=== PATIENT | male | born 1945 | race Caucasian/White ===

== ENCOUNTER 2017-02-25 17:10 | Inpatient (IN) | payer MEDICARE ==
[~2017-02-25 17:10] MED LIST: ADULT LOW DOSE81 M1 PO; AMBIEN5 M1 PO; ASPIRIN325 MG PO; ATORVASTATIN CA20 M1 PO; ATROVENT; BYSTOLIC10 M1 PO; BYSTOLIC5 M1 PO; CARDIZEM CD240 M1 PO; CATAPRES-TTS 11 EACH TD; CIPRO500 M2 PO; CLONAZEPAM0.5 M2 PO; CLONIDINE HCL0.1 M2 PO; CLONIDINE HCL0.3 M1 PO; COREG6.25 M1 PO; COREG6.25 MG PO; COZAAR100 M1 PO; DILTIAZEM 24HR120 M4 PO; DULERA 200 MCG/13 G1 INH; ESCITALOPRAM OX10 M1 PO; FISH OIL 1,2001 EAC2 PO; GLUCOSAMINE1000 MG PO; HYDRALAZINE HCL25 M1 PO; HYDRALAZINE HCL50 M1 PO; IMDUR PO; IPRAT-ALBUT 0.5-3 ML INH; ISOSORBIDE MONO60 M3 PO; LASIX40 M1 PO; LOSARTAN-HCTZ1 EAC3 PO; METAMUCIL; MULTIVITAMIN1 TAB PO; NORCO 10-325 T1 EACH PO; NORVASC10 M2 PO; NORVASC5 M1 PO; OXYBUTYNIN CHLOR5 M2 PO; PLAVIX75 M1 PO; POLYETHYLENE GLY1 G1 PO; PROAIR HFA8.5 GM INH; PROTONIX40 M2 PO; SENNA8.6 M2 PO; VITAMIN B COMPL1 CAP PO; VITAMIN E1000 UNI1 PO; [UNRECOGNIZED DRUG - REMARK] TOP
[2017-02-25 19:04] LABS: BASO % 0.5 % (0-2); EOS % 2.2 % (0-7); EOSINOPHIL ABSOLUTE COUNT 0.1 tho/cmm (0.0-0.7); HCT-HEMATOCRIT 35.6 % (36.0-53.5); HGB-HEMOGLOBIN 11.8 gm/dl (13.5-17.0); IMMATURE GRANULOCYTES ABSOLUTE 0.01 tho/cmm (0-0.03); IMMATURE GRANULOCYTES PERCENT 0.2 % (0-0.3); LYMPH % 31.3 % (20-45); LYMPH ABSOLUTE COUNT 1.7 tho/cmm (0.8-4.5); MCH (MEAN CORPUSCULAR HGB) 28.7 pg (28.0-32.0); MCHC MEAN CORPUSCULAR HGB CONC 33.1 % (32.0-36.0); MCV (MEAN CELL VOLUME) 86.6 fl (82.0-96.0); MONO % 13.2 % (0-12); MONOCYTE ABSOLUTE COUNT 0.7 tho/cmm (0.0-1.2); NEUTROPHIL ABSOLUTE COUNT 2.9 tho/cmm (1.6-8.0); NEUTROPHIL-AUTOMATED 2.9 tho/cmm (1.6-8.0); NEUTROPHILS % 52.6 % (40-80); PLATELET COUNT 193 tho/cmm (150-450); RED BLOOD COUNT 4.11 mil/cmm (4.40-5.70); RED CELL DISTRIBUTION WIDTH 15.7 % (12.4-16.4); WHITE BLOOD COUNT 5.5 tho/cmm (4.0-10.0)
[2017-02-25 19:18] LABS: ANION GAP 11 mmol/L (0-20); BLOOD UREA NITROGEN 38 mg/dl (6-24); CALCIUM 9.4 mg/dl (8.5-10.5); CARBON DIOXIDE-VENOUS 24 mmol/L (22-32); CHLORIDE 111 mmol/l (96-110); CREATININE 1.92 mg/dl (0.60-1.30); GLUCOSE 113 mg/dL (70-110); SODIUM 142 mmol/L (135-145); eGFR VALUE FOR BLACK 40 mL/Min
[2017-02-25 19:25] LABS: POTASSIUM 4.1 mmol/L (3.7-5.1)
[2017-02-25 22:56] LABS: TSH-THYROID STIMULATING HORM. 2.43 uIU/ml (0.40-3.80)
[2017-02-26 02:53] LABS: BASO % 0.5 % (0-2); EOS % 2.1 % (0-7); EOSINOPHIL ABSOLUTE COUNT 0.1 tho/cmm (0.0-0.7); HCT-HEMATOCRIT 33.2 % (36.0-53.5); HGB-HEMOGLOBIN 10.9 gm/dl (13.5-17.0); IMMATURE GRANULOCYTES ABSOLUTE 0.01 tho/cmm (0-0.03); IMMATURE GRANULOCYTES PERCENT 0.2 % (0-0.3); LYMPH % 30.5 % (20-45); LYMPH ABSOLUTE COUNT 1.9 tho/cmm (0.8-4.5); MCH (MEAN CORPUSCULAR HGB) 28.3 pg (28.0-32.0); MCHC MEAN CORPUSCULAR HGB CONC 32.8 % (32.0-36.0); MCV (MEAN CELL VOLUME) 86.2 fl (82.0-96.0); MEAN PLATELET VOLUME 9.5 cmc (9.4-12.4); MONO % 10.2 % (0-12); MONOCYTE ABSOLUTE COUNT 0.6 tho/cmm (0.0-1.2); NEUTROPHIL ABSOLUTE COUNT 3.4 tho/cmm (1.6-8.0); NEUTROPHIL-AUTOMATED 3.4 tho/cmm (1.6-8.0); NEUTROPHILS % 56.5 % (40-80); PLATELET COUNT 177 tho/cmm (150-450); RED BLOOD COUNT 3.85 mil/cmm (4.40-5.70); RED CELL DISTRIBUTION WIDTH 15.7 % (12.4-16.4); WHITE BLOOD COUNT 6.1 tho/cmm (4.0-10.0)
[2017-02-26 03:05] LABS: ANION GAP 12 mmol/L (0-20); BLOOD UREA NITROGEN 42 mg/dl (6-24); CALCIUM 8.8 mg/dl (8.5-10.5); CARBON DIOXIDE-VENOUS 23 mmol/L (22-32); CHLORIDE 111 mmol/l (96-110); GLUCOSE 120 mg/dL (70-110); POTASSIUM 3.7 mmol/L (3.7-5.1); SODIUM 142 mmol/L (135-145); eGFR VALUE FOR BLACK 28 mL/Min
[2017-02-26 03:17] LABS: CREATININE 2.59 mg/dl (0.60-1.30)
[2017-02-26 19:28] LABS: URINE BILIRUBIN NEGATIVE (NEG); URINE BLOOD SMALL (NEG); URINE GLUCOSE (UA) NEGATIVE (NEG); URINE KETONE NEGATIVE (NEG); URINE LEUKOCYTE ESTERASE NEGATIVE (NEG); URINE NITRITE NEGATIVE (NEG); URINE PROTEIN MODERATE (NEG); URINE SPECIFIC GRAVITY 1.015 (1.003-1.030)
[2017-02-26 19:37] LABS: URINE APPEARANCE CLEAR; URINE COLOR YELLOW
[2017-02-26 19:46] LABS: URINE CREATININE-RANDOM 224 mg/dl (30-125); URINE SODIUM-RANDOM 39 mmol/L (20-110)
[2017-02-26 19:48] LABS: URINE RBC 100-125 /[HPF] (0-5)
[2017-02-26 19:53] LABS: URINE MUCUS 2+
[2017-02-27 05:31] LABS: BASO % 0.4 % (0-2); EOS % 3.1 % (0-7); EOSINOPHIL ABSOLUTE COUNT 0.2 tho/cmm (0.0-0.7); HCT-HEMATOCRIT 34.8 % (36.0-53.5); HGB-HEMOGLOBIN 11.3 gm/dl (13.5-17.0); IMMATURE GRANULOCYTES ABSOLUTE 0.01 tho/cmm (0-0.03); IMMATURE GRANULOCYTES PERCENT 0.2 % (0-0.3); LYMPH % 24.8 % (20-45); LYMPH ABSOLUTE COUNT 1.4 tho/cmm (0.8-4.5); MCH (MEAN CORPUSCULAR HGB) 27.9 pg (28.0-32.0); MCHC MEAN CORPUSCULAR HGB CONC 32.5 % (32.0-36.0); MCV (MEAN CELL VOLUME) 85.9 fl (82.0-96.0); MEAN PLATELET VOLUME 9.5 cmc (9.4-12.4); MONO % 12.4 % (0-12); MONOCYTE ABSOLUTE COUNT 0.7 tho/cmm (0.0-1.2); NEUTROPHIL ABSOLUTE COUNT 3.2 tho/cmm (1.6-8.0); NEUTROPHIL-AUTOMATED 3.2 tho/cmm (1.6-8.0); NEUTROPHILS % 59.1 % (40-80); PLATELET COUNT 179 tho/cmm (150-450); RED BLOOD COUNT 4.05 mil/cmm (4.40-5.70); RED CELL DISTRIBUTION WIDTH 15.8 % (12.4-16.4); WHITE BLOOD COUNT 5.5 tho/cmm (4.0-10.0)
[2017-02-27 05:49] LABS: ALBUMIN 3.3 g/dl (3.5-5.0); ANION GAP 13 mmol/L (0-20); BLOOD UREA NITROGEN 42 mg/dl (6-24); CALCIUM 9.1 mg/dl (8.5-10.5); CARBON DIOXIDE-VENOUS 23 mmol/L (22-32); CHLORIDE 109 mmol/l (96-110); CREATININE 2.17 mg/dl (0.60-1.30); GLUCOSE 104 mg/dL (70-110); PHOSPHOROUS 2.9 mg/dl (2.5-4.9); SODIUM 141 mmol/L (135-145); eGFR VALUE FOR BLACK 34 mL/Min
[2017-02-27 05:56] LABS: POTASSIUM 4.4 mmol/L (3.7-5.1)
[2017-02-28 05:08] LABS: ANION GAP 13 mmol/L (0-20); BLOOD UREA NITROGEN 52 mg/dl (6-24); CALCIUM 8.9 mg/dl (8.5-10.5); CARBON DIOXIDE-VENOUS 22 mmol/L (22-32); CHLORIDE 107 mmol/l (96-110); CREATININE 2.52 mg/dl (0.60-1.30); GLUCOSE 105 mg/dL (70-110); POTASSIUM 3.7 mmol/L (3.7-5.1); SODIUM 138 mmol/L (135-145); eGFR VALUE FOR BLACK 29 mL/Min
[2017-03-01 06:47] LABS: ANION GAP 16 mmol/L (0-20); BLOOD UREA NITROGEN 57 mg/dl (6-24); CALCIUM 8.8 mg/dl (8.5-10.5); CARBON DIOXIDE-VENOUS 21 mmol/L (22-32); CHLORIDE 102 mmol/l (96-110); GLUCOSE 118 mg/dL (70-110); POTASSIUM 3.6 mmol/L (3.7-5.1); SODIUM 135 mmol/L (135-145); eGFR VALUE FOR BLACK 31 mL/Min
[2017-03-02 05:24] LABS: ANION GAP 17 mmol/L (0-20); BLOOD UREA NITROGEN 72 mg/dl (6-24); CALCIUM 8.9 mg/dl (8.5-10.5); CARBON DIOXIDE-VENOUS 19 mmol/L (22-32); CHLORIDE 99 mmol/l (96-110); CREATININE 2.95 mg/dl (0.60-1.30); GLUCOSE 120 mg/dL (70-110); SODIUM 131 mmol/L (135-145); eGFR VALUE FOR BLACK 24 mL/Min
[2017-03-02 12:34] LABS: ABG CO2 ARTERIAL 15 mmol/L (21-27); ARTERIAL BLD GAS O2 SATURATION 90 % (95-98); ARTERIAL BLOOD GAS PCO2 27 mmHg (32-45); ARTERIAL PO2 61 mmHg (70-100); BICARBONATE 14 mmol/L (21-28); BLOOD GAS BASE EXCESS -10 mM/L (-/+3); PH 7.35 Units (7.35-7.45)
[2017-03-02 13:37] LABS: ABG CO2 ARTERIAL 17 mmol/L (21-27); ARTERIAL BLD GAS O2 SATURATION 93 % (95-98); ARTERIAL BLOOD GAS PCO2 27 mmHg (32-45); ARTERIAL PO2 68 mmHg (70-100); BICARBONATE 16 mmol/L (21-28); BLOOD GAS BASE EXCESS -7 mM/L (-/+3); PH 7.39 Units (7.35-7.45)
[2017-03-02 16:55] LABS: URINE SODIUM-RANDOM 12 mmol/L (20-110)
[2017-03-02 17:07] LABS: ANION GAP 17 mmol/L (0-20); BLOOD UREA NITROGEN 82 mg/dl (6-24); CALCIUM 8.5 mg/dl (8.5-10.5); CARBON DIOXIDE-VENOUS 17 mmol/L (22-32); CHLORIDE 100 mmol/l (96-110); GLUCOSE 132 mg/dL (70-110); MAGNESIUM 1.7 mg/dl (1.3-2.6); POTASSIUM 4.4 mmol/L (3.7-5.1); SODIUM 130 mmol/L (135-145); eGFR VALUE FOR BLACK 17 mL/Min
[2017-03-02 17:15] LABS: URINE CREATININE-RANDOM 289 mg/dl (30-125)
[2017-03-02 18:06] LABS: PLATELET COUNT 169 tho/cmm (150-450)
[2017-03-02 18:10] LABS: INR 1.1 INR (0.9-1.1); PROTHROMBIN TIME 12.8 SECONDS (9.0-13.6)
[2017-03-03 05:02] LABS: BASO % 0.1 % (0-2); EOS % 0.1 % (0-7); IMMATURE GRANULOCYTES ABSOLUTE 0.03 tho/cmm (0-0.03); IMMATURE GRANULOCYTES PERCENT 0.4 % (0-0.3); LYMPH % 11.3 % (20-45); LYMPH ABSOLUTE COUNT 0.9 tho/cmm (0.8-4.5); MCH (MEAN CORPUSCULAR HGB) 28.3 pg (28.0-32.0); MCHC MEAN CORPUSCULAR HGB CONC 34.5 % (32.0-36.0); MCV (MEAN CELL VOLUME) 82.2 fl (82.0-96.0); MEAN PLATELET VOLUME 10.1 cmc (9.4-12.4); MONO % 14.7 % (0-12); MONOCYTE ABSOLUTE COUNT 1.1 tho/cmm (0.0-1.2); NEUTROPHIL ABSOLUTE COUNT 5.5 tho/cmm (1.6-8.0); NEUTROPHIL-AUTOMATED 5.5 tho/cmm (1.6-8.0); NEUTROPHILS % 73.4 % (40-80); PLATELET COUNT 179 tho/cmm (150-450); RED BLOOD COUNT 3.53 mil/cmm (4.40-5.70); RED CELL DISTRIBUTION WIDTH 15.5 % (12.4-16.4); WHITE BLOOD COUNT 7.5 tho/cmm (4.0-10.0)
[2017-03-03 05:18] LABS: ANION GAP 16 mmol/L (0-20); BLOOD UREA NITROGEN 62 mg/dl (6-24); CALCIUM 8.9 mg/dl (8.5-10.5); CARBON DIOXIDE-VENOUS 22 mmol/L (22-32); CHLORIDE 99 mmol/l (96-110); CREATININE 3.06 mg/dl (0.60-1.30); GLUCOSE 120 mg/dL (70-110); MAGNESIUM 1.9 mg/dl (1.3-2.6); PHOSPHOROUS 4.5 mg/dl (2.5-4.9); POTASSIUM 3.8 mmol/L (3.7-5.1); SODIUM 133 mmol/L (135-145); eGFR VALUE FOR BLACK 23 mL/Min
[2017-03-03 18:02] LABS: PROCALCITONIN 2.36 ng/ml (0.05-0.09)
[2017-03-04 04:57] LABS: BASO % 0.2 % (0-2); HCT-HEMATOCRIT 34.5 % (36.0-53.5); HGB-HEMOGLOBIN 11.4 gm/dl (13.5-17.0); IMMATURE GRANULOCYTES ABSOLUTE 0.05 tho/cmm (0-0.03); LYMPH % 9.8 % (20-45); LYMPH ABSOLUTE COUNT 0.5 tho/cmm (0.8-4.5); MCV (MEAN CELL VOLUME) 81.8 fl (82.0-96.0); MEAN PLATELET VOLUME 10.1 cmc (9.4-12.4); MONO % 3.6 % (0-12); MONOCYTE ABSOLUTE COUNT 0.2 tho/cmm (0.0-1.2); NEUTROPHIL ABSOLUTE COUNT 4.3 tho/cmm (1.6-8.0); NEUTROPHIL-AUTOMATED 4.3 tho/cmm (1.6-8.0); NEUTROPHILS % 85.4 % (40-80); PLATELET COUNT 144 tho/cmm (150-450); RED BLOOD COUNT 4.22 mil/cmm (4.40-5.70); RED CELL DISTRIBUTION WIDTH 15.6 % (12.4-16.4)
[2017-03-04 05:18] LABS: ALB/GLOB RATIO 0.8 (0.8-2.0); ALBUMIN 3.1 g/dl (3.5-5.0); ALKALINE PHOSPHATASE 69 U/L (33-138); ALT/SGPT 22 U/L (12-78); ANION GAP 20 mmol/L (0-20); AST/SGOT 28 U/L (10-40); BILIRUBIN,TOTAL 1.3 mg/dl (0.0-1.5); BLOOD UREA NITROGEN 48 mg/dl (6-24); CALCIUM 8.3 mg/dl (8.5-10.5); CARBON DIOXIDE-VENOUS 19 mmol/L (22-32); CHLORIDE 97 mmol/l (96-110); CREATININE 3.34 mg/dl (0.60-1.30); GLUCOSE 156 mg/dL (70-110); PHOSPHOROUS 4.7 mg/dl (2.5-4.9); POTASSIUM 4.1 mmol/L (3.7-5.1); SODIUM 132 mmol/L (135-145); eGFR VALUE FOR BLACK 20 mL/Min
[2017-03-05 04:34] LABS: IMMATURE GRANULOCYTES ABSOLUTE 0.01 tho/cmm (0-0.03); IMMATURE GRANULOCYTES PERCENT 0.2 % (0-0.3); LYMPH ABSOLUTE COUNT 0.4 tho/cmm (0.8-4.5); MCV (MEAN CELL VOLUME) 82.3 fl (82.0-96.0); MEAN PLATELET VOLUME 10.2 cmc (9.4-12.4); MONOCYTE ABSOLUTE COUNT 0.3 tho/cmm (0.0-1.2); NEUTROPHIL ABSOLUTE COUNT 4.1 tho/cmm (1.6-8.0); NEUTROPHIL-AUTOMATED 4.1 tho/cmm (1.6-8.0); NEUTROPHILS % 84.8 % (40-80); PLATELET COUNT 201 tho/cmm (150-450); RED CELL DISTRIBUTION WIDTH 15.4 % (12.4-16.4); WHITE BLOOD COUNT 4.8 tho/cmm (4.0-10.0)
[2017-03-05 04:44] LABS: ANION GAP 14 mmol/L (0-20); BLOOD UREA NITROGEN 61 mg/dl (6-24); CALCIUM 9.3 mg/dl (8.5-10.5); CARBON DIOXIDE-VENOUS 23 mmol/L (22-32); CHLORIDE 99 mmol/l (96-110); CREATININE 3.05 mg/dl (0.60-1.30); GLUCOSE 149 mg/dL (70-110); PHOSPHOROUS 4.7 mg/dl (2.5-4.9); POTASSIUM 3.7 mmol/L (3.7-5.1); SODIUM 132 mmol/L (135-145); eGFR VALUE FOR BLACK 23 mL/Min
[2017-03-05 04:47] LABS: HCT-HEMATOCRIT 24.7 % (36.0-53.5); HGB-HEMOGLOBIN 8.5 gm/dl (13.5-17.0); MCH (MEAN CORPUSCULAR HGB) 28.3 pg (28.0-32.0); MCHC MEAN CORPUSCULAR HGB CONC 34.4 % (32.0-36.0)
--- NOTE | 2017-03-05 13:44 | NUR ---
NOTIFIED DIALYSIS @ 8123 ABOUT FISTULA SITE STILL BLEEDING WHEN REMOVING SURESEAL BANDAID. JORDON FROM DIALYSIS SAID TO LEAVE BANDAID ON UNTL 1800 AND THEN ASSESS SITE. IF SITE STILL BLEEDING PUT ANOTHER SURESEAL BANDAID ON AND LEAVE IT ON BUT DO NOT PULL TIGHT. WILL CONTINUE TO MONITOR.
[2017-03-05 15:47] LABS: HCT-HEMATOCRIT 25.3 % (36.0-53.5); HGB-HEMOGLOBIN 8.7 gm/dl (13.5-17.0); MCV (MEAN CELL VOLUME) 81.9 fl (82.0-96.0); RED CELL DISTRIBUTION WIDTH 15.4 % (12.4-16.4)
[2017-03-06 05:28] LABS: HCT-HEMATOCRIT 25.2 % (36.0-53.5); HGB-HEMOGLOBIN 8.7 gm/dl (13.5-17.0); IMMATURE GRANULOCYTES ABSOLUTE 0.03 tho/cmm (0-0.03); IMMATURE GRANULOCYTES PERCENT 0.6 % (0-0.3); LYMPH % 7.3 % (20-45); LYMPH ABSOLUTE COUNT 0.4 tho/cmm (0.8-4.5); MCH (MEAN CORPUSCULAR HGB) 28.6 pg (28.0-32.0); MCHC MEAN CORPUSCULAR HGB CONC 34.5 % (32.0-36.0); MCV (MEAN CELL VOLUME) 82.9 fl (82.0-96.0); MEAN PLATELET VOLUME 9.5 cmc (9.4-12.4); MONO % 7.5 % (0-12); MONOCYTE ABSOLUTE COUNT 0.4 tho/cmm (0.0-1.2); NEUTROPHIL ABSOLUTE COUNT 4.4 tho/cmm (1.6-8.0); NEUTROPHIL-AUTOMATED 4.4 tho/cmm (1.6-8.0); NEUTROPHILS % 84.6 % (40-80); PLATELET COUNT 214 tho/cmm (150-450); RED BLOOD COUNT 3.04 mil/cmm (4.40-5.70); RED CELL DISTRIBUTION WIDTH 15.4 % (12.4-16.4); WHITE BLOOD COUNT 5.2 tho/cmm (4.0-10.0)
[2017-03-06 05:43] LABS: ALBUMIN 2.9 g/dl (3.5-5.0); BLOOD UREA NITROGEN 51 mg/dl (6-24); CALCIUM 9.3 mg/dl (8.5-10.5); CARBON DIOXIDE-VENOUS 25 mmol/L (22-32); CHLORIDE 100 mmol/l (96-110); GLUCOSE 152 mg/dL (70-110); PHOSPHOROUS 3.3 mg/dl (2.5-4.9); SODIUM 134 mmol/L (135-145); eGFR VALUE FOR BLACK 39 mL/Min
[2017-03-06 05:49] LABS: ANION GAP 13 mmol/L (0-20); CREATININE 1.98 mg/dl (0.60-1.30); POTASSIUM 4.1 mmol/L (3.7-5.1)
[2017-03-07 04:34] LABS: HCT-HEMATOCRIT 25.8 % (36.0-53.5); HGB-HEMOGLOBIN 8.6 gm/dl (13.5-17.0); IMMATURE GRANULOCYTES ABSOLUTE 0.05 tho/cmm (0-0.03); IMMATURE GRANULOCYTES PERCENT 0.7 % (0-0.3); LYMPH % 7.9 % (20-45); LYMPH ABSOLUTE COUNT 0.5 tho/cmm (0.8-4.5); MCHC MEAN CORPUSCULAR HGB CONC 33.3 % (32.0-36.0); MEAN PLATELET VOLUME 9.8 cmc (9.4-12.4); MONO % 6.2 % (0-12); MONOCYTE ABSOLUTE COUNT 0.4 tho/cmm (0.0-1.2); NEUTROPHIL ABSOLUTE COUNT 5.8 tho/cmm (1.6-8.0); NEUTROPHIL-AUTOMATED 5.8 tho/cmm (1.6-8.0); NEUTROPHILS % 85.2 % (40-80); PLATELET COUNT 248 tho/cmm (150-450); RED BLOOD COUNT 3.07 mil/cmm (4.40-5.70); RED CELL DISTRIBUTION WIDTH 15.5 % (12.4-16.4); WHITE BLOOD COUNT 6.8 tho/cmm (4.0-10.0)
[2017-03-07 06:58] LABS: ANION GAP 14 mmol/L (0-20); BLOOD UREA NITROGEN 38 mg/dl (6-24); CALCIUM 9.2 mg/dl (8.5-10.5); CARBON DIOXIDE-VENOUS 24 mmol/L (22-32); CHLORIDE 102 mmol/l (96-110); CREATININE 1.54 mg/dl (0.60-1.30); GLUCOSE 151 mg/dL (70-110); POTASSIUM 3.9 mmol/L (3.7-5.1); SODIUM 136 mmol/L (135-145); eGFR VALUE FOR BLACK 52 mL/Min
[2017-03-08 05:28] LABS: ANION GAP 11 mmol/L (0-20); BLOOD UREA NITROGEN 33 mg/dl (6-24); CALCIUM 9.4 mg/dl (8.5-10.5); CARBON DIOXIDE-VENOUS 29 mmol/L (22-32); CHLORIDE 100 mmol/l (96-110); CREATININE 1.44 mg/dl (0.60-1.30); GLUCOSE 106 mg/dL (70-110); PHOSPHOROUS 2.1 mg/dl (2.5-4.9); POTASSIUM 3.8 mmol/L (3.7-5.1); SODIUM 136 mmol/L (135-145); eGFR VALUE FOR BLACK 57 mL/Min
[2017-03-09 08:50] LABS: ALBUMIN 3.2 g/dl (3.5-5.0); ANION GAP 11 mmol/L (0-20); BLOOD UREA NITROGEN 27 mg/dl (6-24); CALCIUM 9.7 mg/dl (8.5-10.5); CARBON DIOXIDE-VENOUS 31 mmol/L (22-32); CHLORIDE 97 mmol/l (96-110); CREATININE 1.33 mg/dl (0.60-1.30); GLUCOSE 101 mg/dL (70-110); PHOSPHOROUS 2.1 mg/dl (2.5-4.9); POTASSIUM 3.5 mmol/L (3.7-5.1); SODIUM 135 mmol/L (135-145); eGFR VALUE FOR BLACK 62 mL/Min
--- NOTE | 2017-03-09 18:01 | NUR ---
AGREE WITH STUDENT CHARTING 03/09
[2017-03-10 06:02] LABS: ALBUMIN 2.9 g/dl (3.5-5.0); ANION GAP 9 mmol/L (0-20); BLOOD UREA NITROGEN 29 mg/dl (6-24); CALCIUM 9.2 mg/dl (8.5-10.5); CARBON DIOXIDE-VENOUS 31 mmol/L (22-32); CHLORIDE 99 mmol/l (96-110); GLUCOSE 110 mg/dL (70-110); PHOSPHOROUS 2.6 mg/dl (2.5-4.9); SODIUM 135 mmol/L (135-145); eGFR VALUE FOR BLACK 64 mL/Min
[2017-03-10 11:12] LABS: ABG CO2 ARTERIAL 29 mmol/L (21-27); ARTERIAL BLD GAS O2 SATURATION 96 % (95-98); ARTERIAL BLOOD GAS PCO2 39 mmHg (32-45); ARTERIAL PO2 75 mmHg (70-100); BICARBONATE 28 mmol/L (21-28); BLOOD GAS BASE EXCESS 5 mM/L (-/+3); PH 7.47 Units (7.35-7.45)
[2017-03-11 04:59] LABS: ALBUMIN 2.8 g/dl (3.5-5.0); ANION GAP 10 mmol/L (0-20); BLOOD UREA NITROGEN 30 mg/dl (6-24); CALCIUM 9.3 mg/dl (8.5-10.5); CARBON DIOXIDE-VENOUS 28 mmol/L (22-32); CHLORIDE 100 mmol/l (96-110); CREATININE 1.11 mg/dl (0.60-1.30); GLUCOSE 94 mg/dL (70-110); PHOSPHOROUS 2.7 mg/dl (2.5-4.9); POTASSIUM 3.7 mmol/L (3.7-5.1); SODIUM 134 mmol/L (135-145); eGFR VALUE FOR BLACK 78 mL/Min
[2017-03-11] MEDS ORDERED: CATAPRES0.1 M1 PO (10:43)
[2017-03-11] MEDS ORDERED: HYDRALAZINE HCL50 M1 PO (10:44)
[2017-03-11] MEDS ORDERED: ISOSORBIDE MONO30 M4 PO (10:44)
[2017-03-11] MEDS ORDERED: BYSTOLIC5 M1 PO (10:44)
[2017-03-11] MEDS ORDERED: NORVASC5 M2 PO (10:45)
[2017-03-11] MEDS ORDERED: COZAAR50 M1 PO (10:46)
[2017-03-11] MEDS ORDERED: ALDACTONE25 M1 PO (10:46)
[2017-03-11] MEDS ORDERED: DELTASONE20 MG PO (10:47)
== END 2017-03-11 17:09 | DRG 673 ==
LOC: EDMED 17:10 → EMR2 22:42 → PCUA 23:47
PROVIDERS: Emergency Medicine; Internal Medicine; Internal Medicine Cardiovascular Disease; Internal Medicine Critical Care Medicine; Internal Medicine Nephrology; Internal Medicine Pulmonary Disease; ADMIT Hospitalist
PROC: 5A09357 Assistance with Respiratory Ventilation, Less than 24 Consecutive Hours, Continuous Positive Airway Pressure (ICD-10-PCS; 2017-02-26)
PROC: 5A1D60Z (ICD-10-PCS; 2017-03-02)
PROC: 04793DZ Dilation of Right Renal Artery with Intraluminal Device, Percutaneous Approach (ICD-10-PCS; principal; 2017-03-04)
PROC: B4161ZZ Fluoroscopy of Right Renal Artery using Low Osmolar Contrast (ICD-10-PCS; 2017-03-04)
DX: I70.1 Atherosclerosis of renal artery (principal); J96.01 Acute respiratory failure with hypoxia; I21.3 ST elevation (STEMI) myocardial infarction of unspecified site; I50.32 Chronic diastolic (congestive) heart failure; I13.0 Hypertensive heart and chronic kidney disease with heart failure and stage 1 through stage 4 chronic kidney disease, or unspecified chronic kidney disease; N17.9 Acute kidney failure, unspecified; E87.1 Hypo-osmolality and hyponatremia; I16.0 Hypertensive urgency; I73.9 Peripheral vascular disease, unspecified; I48.91 Unspecified atrial fibrillation; E78.5 Hyperlipidemia, unspecified; Z87.891 Personal history of nicotine dependence; G47.33 Obstructive sleep apnea (adult) (pediatric); Z95.1 Presence of aortocoronary bypass graft; Z91.011 Allergy to milk products; I25.10 Atherosclerotic heart disease of native coronary artery without angina pectoris; R07.9 Chest pain, unspecified; Z79.02 Long term (current) use of antithrombotics/antiplatelets; Z79.82 Long term (current) use of aspirin; I34.0 Nonrheumatic mitral (valve) insufficiency; N18.3 Chronic kidney disease, stage 3 (moderate); I27.2 Other secondary pulmonary hypertension; D64.9 Anemia, unspecified; E16.2 Hypoglycemia, unspecified; K59.00 Constipation, unspecified; F32.9 Major depressive disorder, single episode, unspecified
CPT/HCPCS: A9500; A9540; A9558; C1725; C1760; C1769; G0269; J0280; J0360; J1644; J1650; J1940; J2250; J2543; J2720; J2785; J2920; J3010; J3370; J7050; J7512; Q9967